=== PATIENT | male | born 1965 | race Caucasian/White ===

== ENCOUNTER 2017-01-24 20:35 | Emergency (ER) | payer BC ==
[2017-01-24] MEDS ORDERED: Potassium Chloride 20 MEQ Tab.ER PO ONE ×2 (20:36→21:47)
[2017-01-24] MEDS ORDERED: Losartan 25 MG Tab PO ONE (20:36)
[2017-01-24] MEDS ORDERED: Sodium Chloride 0.9% 10 ML Syringe FLUSH PRN (20:38)
--- NOTE | 2017-01-24 20:46 | EDM.PDOC ---
ED HPI GENERAL MEDICAL PROBLEM - General Stated Complaint: LIGHT HEADED Time Seen by Provider: 01/24/17 20:35 Source of Information: Reports: Patient, Family History Limitations: Reports: No Limitations - History of Present Illness INITIAL COMMENTS - FREE TEXT/NARRATIVE: 51 y.o.w.m in prev heathy condition, came to the ED after he suddenly got dizzy and lightheaded after drinking 4 beers in a bar. Pt at a hamburger and drove himself to the ED. Pt was pale and too week to ambulate, he was picked up with the wheel chair and brought to the ed. Pt complained of "disfuctioning" left arm , which is subsiding. BP was 185/113. As per pt, his BP was fine in the past. He dose not smoke or drink coffee, does not use drugs. No C/P. No H/A or other acute medical issues. Onset: Today Onset Date: 01/24/17 Onset Time: 20:00 Duration: Minutes:, Intermittent Location: Reports: Upper Extremity, Left, Generalized Quality: Reports: Other (dizzy, left arm numbness) Improves with: Reports: Rest Worsens with: Reports: Movement Context: Reports: Other (drinking 4 beers, resting) Associated Symptoms: Reports: Malaise, Weakness - Related Data Allergies Allergy/AdvReac Type Severity Reaction Status Date / Time No Known Allergies Allergy Verified 01/24/17 21:01 Home Meds: Home Meds NK [No Known Home Meds] 01/24/17 [History] ED ROS GENERAL - Review of Systems Review Of Systems: See Below Constitutional: Reports: Weakness, Fatigue HEENT: Reports: No Symptoms Respiratory: Reports: No Symptoms Cardiovascular: Reports: Lightheadedness, Orthopnea, Palpitations, Other (left arm numbness) Endocrine: Reports: No Symptoms GI/Abdominal: Reports: No Symptoms : Reports: No Symptoms Musculoskeletal: Reports: No Symptoms Skin: Reports: Pallor Neurological: Reports: Dizziness Psychiatric: Reports: No Symptoms Hematologic/Lymphatic: Reports: No Symptoms Immunologic: Reports: No Symptoms ED EXAM, NEURO - Physical Exam Exam: See Below Exam Limited By: No Limitations General Appearance: Alert, WD/WN, Mild Distress Eye Exam: Bilateral Eye: Normal Inspection Ears: Normal External Exam Nose: Normal Inspection Throat/Mouth: Normal Inspection Head Exam: Atraumatic, Normocephalic Neck: Normal Inspection, Supple, Non-Tender, Full Range of Motion Respiratory/Chest: No Respiratory Distress, Lungs Clear, Normal Breath Sounds, No Accessory Muscle Use, Chest Non-Tender Cardiovascular: Normal Peripheral Pulses, Regular Rate, Rhythm, No Edema, No Gallop, No JVD, No Murmur, No Rub GI/Abdominal: Normal Bowel Sounds, Soft, Non-Tender, No Organomegaly, No Distention, No Abnormal Bruit, No Mass, Pelvis Stable (Male) Exam: Deferred Rectal (Males) Exam: Deferred Neurological: Alert, Normal Mood/Affect, Normal Dorsiflexion, CN II-XII Intact, Normal Gait Back Exam: Normal Inspection, Full Range of Motion Extremities: Normal Inspection, Normal Range of Motion, Non-Tender, No Pedal Edema Psychiatric: Normal Affect, Normal Mood Skin Exam: Warm, Dry, Intact, Normal Color, No Rash EKG INTERPRETATION EKG Date: 01/24/17 Time: 20:50 Rhythm: NSR Rate (Beats/Min): 93 [place]: Normal P-Wave: Present QRS: Normal ST-T: Normal QT: Normal Comparison: NA - No Prior EKG Course - Vital Signs Text/Narrative:: 51 y.o.w.m in prev heathy condition, came to the ED after he suddenly got dizzy and lightheaded after drinking 4 beers in a bar. Pt at a hamburger and drove himself to the ED. Pt was pale and too week to ambulate, he was picked up with the wheel chair and brought to the ed. Pt complained of "disfuctioning" left arm , which is subsiding. BP was 185/113. As per pt, his BP was fine in the past. He dose not smoke or drink coffee, does not use drugs. No C/P. No H/A or other acute medical issues. PE: Pale, weak, BP 185/113, pos ortho statics with elevation of puls > 20 when changing from the supine to upright position. Labs: CBC, BMP nl exept K is 3.2 Mg 1.9 Imaging: CXR: elevate r diaphragm, official report is pending Impression: HTN, Dehydration, Hypokalemia Tx: Potassium, Clonidine and losartan, NS Reexam: Pt's symtoms improved, was ambulating well in the ed. BP 160/90 pulse 85 Plan: D/C with instruction Last Recorded V/S: Last Vital Signs Temp 36.6 C 01/24/17 20:35 Pulse 98 01/24/17 20:35 Resp 16 01/24/17 22:00 BP 160/105 H 01/24/17 22:29 Pulse Ox 97 01/24/17 22:00 Orthostatic Blood Pressure [ 169/102 Standing] Orthostatic Blood Pressure [ 163/102 Sitting] Orthostatic Blood Pressure [ 164/105 Supine] - Orders/Labs/Meds Orders: Active Orders 24 hr Category Date Time Status EKG Documentation Completion [RC] ASDIRECTED Care 01/24/17 20:39 Active Orthostatic Vital Signs [RC] ASDIRECTED Care 01/24/17 21:03 Active Chest 1V Frontal [CR] Stat Exams 01/24/17 20:38 Taken Sodium Chloride 0.9% [Saline Flush] Med 01/24/17 20:38 Active 10 ml FLUSH ASDIRECTED PRN Peripheral IV Insertion Adult [OM.PC] Routine Oth 01/24/17 20:38 Ordered EKG 12 Lead [EK] Routine Ther 01/24/17 20:38 Ordered Medication Orders Sodium Chloride (Saline Flush) 10 ml FLUSH ASDIRECTED PRN PRN Reason: Keep Vein Open Last Admin: 01/24/17 20:40 Dose: 10 ml Labs: Laboratory Tests 01/24/17 01/24/17 01/24/17 Range/Units 20:50 20:50 20:50 WBC 7.6 (4.5-12.0) X10-3/uL RBC 4.97 (4.30-5.75) x10(6)uL Hgb 15.0 (11.5-15.5) g/dL Hct 43.7 (30.0-51.3) % MCV 88.0 (80-96) fL MCH 30.2 (27.7-33.6) pg MCHC 34.3 (32.2-35.4) g/dL RDW 11.2 L (11.5-15.5) % Plt Count 171 (125-369) X10(3)uL MPV 8.9 (7.4-10.4) fL Neut % (Auto) 66.6 (46-82) % Lymph % (Auto) 21.9 (13-37) % Braxton % (Auto) 5.9 (4-12) % Eos % (Auto) 5 (1.0-5.0) % Baso % (Auto) 0 (0-2) % Neut # (Auto) 5.1 (1.6-8.3) # Lymph # (Auto) 1.7 (0.6-5.0) # Braxton # (Auto) 0.4 (0.0-1.3) # Eos # (Auto) 0.4 (0.0-0.8) # Baso # (Auto) 0.0 (0.0-0.2) # PT 10.5 (8.7-11.1) INR 1.04 (0.89-1.13) D-Dimer, Quantitative < 100 L (100-400) ng/mL Sodium (135-145) mmol/L Potassium (3.5-5.3) mmol/L Chloride (100-110) mmol/L Carbon Dioxide (23-29) mmol/L BUN (5-20) mg/dL Creatinine (0.6-1.3) mg/dL Est Cr Clr Drug Dosing Estimated GFR (MDRD) (>60) BUN/Creatinine Ratio (9-20) Glucose (80-116) mg/dL Calcium (8.6-10.2) mg/dL Magnesium (1.8-2.5) mg/dL Creatine Kinase (60-160) IU/L Troponin I (0.02-0.06) NG/ML Urine Opiates Screen (NEGATIVE) Ur Oxycodone Screen (NEGATIVE) Ur Propoxyphene Screen (NEGATIVE) Ur Barbituates Screen (NEGATIVE) Ur Tricyclics Screen (NEGATIVE) Ur Phencyclidine Scrn (NEGATIVE) Ur Amphetamine Screen (NEGATIVE) Urine MDMA Screen (NEGATIVE) U Benzodiazepines Scrn (NEGATIVE) U Cocaine Metab Screen (NEGATIVE) U Marijuana (THC) Screen (NEGATIVE) Ethyl Alcohol (<0.01) % 01/24/17 01/24/17 01/24/17 Range/Units 20:50 20:50 20:50 WBC (4.5-12.0) X10-3/uL RBC (4.30-5.75) x10(6)uL Hgb (11.5-15.5) g/dL Hct (30.0-51.3) % MCV (80-96) fL MCH (27.7-33.6) pg MCHC (32.2-35.4) g/dL RDW (11.5-15.5) % Plt Count (125-369) X10(3)uL MPV (7.4-10.4) fL Neut % (Auto) (46-82) % Lymph % (Auto) (13-37) % Braxton % (Auto) (4-12) % Eos % (Auto) (1.0-5.0) % Baso % (Auto) (0-2) % Neut # (Auto) (1.6-8.3) # Lymph # (Auto) (0.6-5.0) # Braxton # (Auto) (0.0-1.3) # Eos # (Auto) (0.0-0.8) # Baso # (Auto) (0.0-0.2) # PT (8.7-11.1) INR (0.89-1.13) D-Dimer, Quantitative (100-400) ng/mL Sodium 136 (135-145) mmol/L Potassium 3.2 L (3.5-5.3) mmol/L Chloride 103 (100-110) mmol/L Carbon Dioxide 25 (23-29) mmol/L BUN 15 (5-20) mg/dL Creatinine 0.9 (0.6-1.3) mg/dL Est Cr Clr Drug Dosing TNP Estimated GFR (MDRD) > 60 (>60) BUN/Creatinine Ratio 16.7 (9-20) Glucose 131 H (80-116) mg/dL Calcium 8.9 (8.6-10.2) mg/dL Magnesium (1.8-2.5) mg/dL Creatine Kinase 213 H (60-160) IU/L Troponin I < 0.01 L (0.02-0.06) NG/ML Urine Opiates Screen (NEGATIVE) Ur Oxycodone Screen (NEGATIVE) Ur Propoxyphene Screen (NEGATIVE) Ur Barbituates Screen (NEGATIVE) Ur Tricyclics Screen (NEGATIVE) Ur Phencyclidine Scrn (NEGATIVE) Ur Amphetamine Screen (NEGATIVE) Urine MDMA Screen (NEGATIVE) U Benzodiazepines Scrn (NEGATIVE) U Cocaine Metab Screen (NEGATIVE) U Marijuana (THC) Screen (NEGATIVE) Ethyl Alcohol (<0.01) % 01/24/17 01/24/17 01/24/17 Range/Units 20:50 20:50 21:01 WBC (4.5-12.0) X10-3/uL RBC (4.30-5.75) x10(6)uL Hgb (11.5-15.5) g/dL Hct (30.0-51.3) % MCV (80-96) fL MCH (27.7-33.6) pg MCHC (32.2-35.4) g/dL RDW (11.5-15.5) % Plt Count (125-369) X10(3)uL MPV (7.4-10.4) fL Neut % (Auto) (46-82) % Lymph % (Auto) (13-37) % Braxton % (Auto) (4-12) % Eos % (Auto) (1.0-5.0) % Baso % (Auto) (0-2) % Neut # (Auto) (1.6-8.3) # Lymph # (Auto) (0.6-5.0) # Braxton # (Auto) (0.0-1.3) # Eos # (Auto) (0.0-0.8) # Baso # (Auto) (0.0-0.2) # PT (8.7-11.1) INR (0.89-1.13) D-Dimer, Quantitative (100-400) ng/mL Sodium (135-145) mmol/L Potassium (3.5-5.3) mmol/L Chloride (100-110) mmol/L Carbon Dioxide (23-29) mmol/L BUN (5-20) mg/dL Creatinine (0.6-1.3) mg/dL Est Cr Clr Drug Dosing Estimated GFR (MDRD) (>60) BUN/Creatinine Ratio (9-20) Glucose (80-116) mg/dL Calcium (8.6-10.2) mg/dL Magnesium 1.9 (1.8-2.5) mg/dL Creatine Kinase (60-160) IU/L Troponin I (0.02-0.06) NG/ML Urine Opiates Screen Negative (NEGATIVE) Ur Oxycodone Screen Negative (NEGATIVE) Ur Propoxyphene Screen Negative (NEGATIVE) Ur Barbituates Screen Negative (NEGATIVE) Ur Tricyclics Screen Negative (NEGATIVE) Ur Phencyclidine Scrn Negative (NEGATIVE) Ur Amphetamine Screen Negative (NEGATIVE) Urine MDMA Screen Negative (NEGATIVE) U Benzodiazepines Scrn Negative (NEGATIVE) U Cocaine Metab Screen Negative (NEGATIVE) U Marijuana (THC) Screen Negative (NEGATIVE) Ethyl Alcohol 0.07 H (<0.01) % Meds: Medications Generic Name Dose Route Start Last Admin Trade Name Freq PRN Reason Stop Dose Admin Sodium Chloride 10 ml 01/24/17 20:38 01/24/17 20:40 Saline Flush FLUSH 10 ml ASDIRECTED PRN Administration Keep Vein Open Discontinued Medications Generic Name Dose Route Start Last Admin Trade Name Freq PRN Reason Stop Dose Admin Clonidine HCl 0.1 mg 01/24/17 21:03 01/24/17 21:34 Catapres PO 01/24/17 21:04 0.1 mg ONETIME ONE Administration Sodium Chloride 1,000 mls @ 999 mls/hr 01/24/17 21:48 01/24/17 22:11 Normal Saline IV 01/24/17 22:48 999 mls/hr .BOLUS ONE Administration Losartan Potassium 25 mg 01/24/17 22:19 01/24/17 22:29 Cozaar PO 01/24/17 22:20 25 mg ONETIME STA Administration Losartan Potassium 25 mg 01/24/17 23:22 Cozaar PO 01/24/17 23:23 ONETIME ONE Potassium Chloride 40 meq 01/24/17 21:47 01/24/17 22:11 Klor-Con M20 PO 01/24/17 21:48 40 meq ONETIME ONE Administration Potassium Chloride Confirm 01/24/17 23:38 Klor-Con M20 Administered 01/24/17 23:39 Dose 40 meq .ROUTE .STK-MED ONE Departure - Departure Time of Disposition: 23:25 Disposition: Home, Self-Care 01 Condition: Good Clinical Impression: Hypokalemia Hypertension Qualifiers: Hypertension type: unspecified Qualified Code(s): I10 - Essential (primary) hypertension - Discharge Information Instructions: Hypertension Referrals: PCP,None [Primary Care Provider] - Forms: ED Department Discharge Additional Instructions: Please take the potassium tablet at 6 am and take the blood pressure tablet [place] on Thursday morning if your diastolic Blood pressure is above 100. Please f/u with your PMD on Thursday. Please come back to the ed if your symptoms get worse acutely - My Orders Last 24 Hours: My Active Orders 01/24/17 20:38 Chest 1V Frontal [CR] Stat Sodium Chloride 0.9% [Saline Flush] 10 ml FLUSH ASDIRECTED PRN Peripheral IV Insertion Adult [OM.PC] Routine EKG 12 Lead [EK] Routine 01/24/17 20:39 EKG Documentation Completion [RC] ASDIRECTED 01/24/17 21:03 Orthostatic Vital Signs [RC] ASDIRECTED - Assessment/Plan Last 24 Hours: My Active Orders 01/24/17 20:38 Chest 1V Frontal [CR] Stat Sodium Chloride 0.9% [Saline Flush] 10 ml FLUSH ASDIRECTED PRN Peripheral IV Insertion Adult [OM.PC] Routine EKG 12 Lead [EK] Routine 01/24/17 20:39 EKG Documentation Completion [RC] ASDIRECTED 01/24/17 21:03 Orthostatic Vital Signs [RC] ASDIRECTED
[2017-01-24] MEDS ORDERED: cloNIDine 0.1 MG Tab PO ONE (21:03)
[2017-01-24] MEDS ORDERED: Sodium Chloride 0.9% 1,000 ML IV ONE (21:48)
[2017-01-24] MEDS: Losartan 25 MG Tab PO STA ×2 (22:29→23:30)
[2017-01-24] MEDS ORDERED: Losartan 50 MG Tab PO ONE (23:22)
[2017-01-24] MEDS ORDERED: Potassium Chloride 20 MEQ Tab.ER ONE (23:38)
--- NOTE | 2017-01-26 12:34 | CR ---
INDICATION: Lightheaded. CHEST: An AP portable upright view of the chest 01/24/2017, revealed the heart to be normal in size and shape. The aorta is tortuous. Overlying EKG leads are noted. An active infiltrate or effusion was not identified. IMPRESSION: 1. No acute process. 2. Probable ASD aorta. MTDD
== END 2017-01-24 23:53 | disposition home or self-care (01) ==
LOC: FB.ED 20:35
DX: E87.6 Hypokalemia (principal); E86.0 Dehydration; I10 Essential (primary) hypertension
CPT/HCPCS: 36415; 71010; 80048; 80305; 82550; 82962; 83735; 84484; 85025; 85379; 85610; 93005; 96360; 99284; A9270; G0480; J7040; J7050

== ENCOUNTER 2024-12-11 20:06 | Emergency (ER) | payer BC ==
[2024-12-11] MEDS: Silver Sulfadiazine 1% Crm 50 GM Tube TOP ONE (20:32)
== END 2024-12-11 20:46 | disposition home or self-care (01) ==
LOC: FB.ED 20:06
DX: T25.221A Burn of second degree of right foot, initial encounter (principal); T25.231A Burn of second degree of right toe(s) (nail), initial encounter; X12.XXXA Contact with other hot fluids, initial encounter; Y93.89 Activity, other specified
CPT/HCPCS: 16020; 99283; A9270